=== PATIENT | female | born 2000 | race Caucasian/White ===

== ENCOUNTER 2024-07-29 12:16 | Emergency (ER) | payer OTHER ==
[~2024-07-29] VITALS: Ht 172.7 cm; Wt 100.0 kg
[2024-07-29 12:24] VITALS: TEMP 98.4; O2SAT 97
[2024-07-29 13:57] VITALS: BP 162/117; PULSE 86; RESP 18
[2024-07-29] MEDS: KETOROLAC 30MG/ML VIAL IM STA (13:57)
[2024-07-29] MEDS ORDERED: NAPR-681 PO (15:05)
== END 2024-07-29 15:53 | disposition home or self-care (01) ==
LOC: ER 12:16
DX: S80.12XA Contusion of left lower leg, initial encounter (principal); E11.9 Type 2 diabetes mellitus without complications; W18.31XA Fall on same level due to stepping on an object, initial encounter; Y93.89 Activity, other specified; Y92.89 Other specified places as the place of occurrence of the external cause; Y99.8 Other external cause status
CPT/HCPCS: 81025; 73590; 96372; 99283; J1885; Z7610